=== PATIENT | male | born 1975 | race Caucasian/White ===

== ENCOUNTER 2022-05-28 15:46 | Emergency (ER) | payer MEDICAID, OTHER ==
--- NOTE | 2022-05-28 16:10 | ED General ---
General Chief Complaint: General Problems/Pain Stated Complaint: RT ARM PAIN/LOW BLOOD PRESSURE/SOB Nursing Triage Note: PT HAS MULTIPLE CHRONIC COMPLAINTS OF BACK AND NECK PAIN. HE REPORTS RIGHT ARM SPASMS FOR 3-4 DAYS. Source of Information: Patient Exam Limitations: No Limitations History of Present Illness Date Seen by Provider: May 28, 2022 Time Seen by Provider: 15:48 Initial Comments 47yoM coming in due to right shoulder pain. Has been going on for roughly 3-4 days. Feels like a muscle spasm to him and is moderate in intensity. Nothing seems to make it better or worse. He hasn't tried any medicines for it. He has not seen any doctor for it. He is not from the area, and is just visiting friends. Denies any trauma to the area. Denies any focal weakness or numbness. Otherwise denying any other acute complaints Allergies and Home Medications Allergies Coded Allergies: No Known Drug Allergies (Unverified , 05/28/22) Patient Home Medication List Home Medication List Reviewed: Yes Review of Systems Review of Systems Constitutional: No fever EENTM: No blurred vision Respiratory: no symptoms reported Cardiovascular: no symptoms reported Gastrointestinal: no symptoms reported Genitourinary: no symptoms reported Musculoskeletal: see HPI Skin: no symptoms reported Psychiatric/Neurological: No Symptoms Reported Hematologic/Lymphatic: No Symptoms Reported Immunological/Allergic: no symptoms reported All Other Systems Reviewed Negative Unless Noted: Yes Past Kqjipwf-Caszwn-Exzskm Hx Patient Social History Tobacco Use?: Yes Tobacco type used: Cigarettes Smoking Status: Current Everyday Smoker Use of E-Cig and/or Vaping dev: No Substance use?: No Alcohol Use?: No Pt feels they are or have been: No Past Medical History Surgery/Hospitalization HX: CHRONIC BACK PAIN Surgeries: No Physical Exam Vital Signs Vital Signs - First Documented 05/28/22 15:50 Temp 36.3 Pulse 105 Resp 16 B/P (MAP) 168/111 (130) Pulse Ox 97 O2 Delivery Room Air Capillary Refill : Less Than 3 Seconds Height, Weight, BMI Height: '" Weight: lbs. oz. kg; BMI Method: General Appearance: No Apparent Distress, WD/WN Eyes: Bilateral Eye Normal Inspection HEENT: PERRL/EOMI, Normal ENT Inspection, Pharynx Normal Neck: Full Range of Motion, Normal Inspection, Non Tender, Supple Respiratory: Chest Non Tender, Lungs Clear, Normal Breath Sounds, No Accessory Muscle Use, No Respiratory Distress Cardiovascular: Regular Rate, Rhythm, No Edema, Normal Peripheral Pulses Gastrointestinal: Normal Bowel Sounds, Non Tender, Soft Back: Normal Inspection, No CVA Tenderness, No Vertebral Tenderness Extremity: Normal Capillary Refill, Normal Inspection, Normal Range of Motion, No Calf Tenderness, No Pedal Edema, Other (Tender with palpation along the right deltoid, pain with testing of the rotator cuff, but 5 out of 5 strength with his rotator cuff) Neurologic/Psychiatric: Alert, No Motor/Sensory Deficits, Normal Mood/Affect Skin: Normal Color, Warm/Dry Lymphatic: No Adenopathy Progress/Results/Core Measures Suspected Sepsis SIRS Temperature: Pulse: 105 Respiratory Rate: 16 Blood Pressure 168 /111 Mean: 130 Results/Orders My Orders Orders - PABLO DURAN MD Shoulder 3 View Right (05/28/22 16:01) Vital Signs/I&O 05/28/22 15:50 Temp 36.3 Pulse 105 Resp 16 B/P (MAP) 168/111 (130) Pulse Ox 97 O2 Delivery Room Air Capillary Refill : Less Than 3 Seconds Blood Pressure Mean: 130 Progress Note : Progress Note 47-year-old male with above history coming in due to right shoulder pain. ABCs were intact and vitals were stable on presentation although he was mildly tachycardic. Physical exam with tenderness along his deltoid, no skin changes or cellulitis. His arms appear to be the same size with no swelling. Normal distal pulses and sensation. Normal neuro exam including specific testing of the radial, ulnar, median nerves. Physical testing more consistent with rotator cuff pathology with pain, but no tear based on his strength. X-ray with no fracture or dislocation of the shoulder. I did a hbvvh-ex-rxyg ultrasound showing compressible veins from his elbow up to his axilla with no obvious blood clot. We will give him ibuprofen for pain and have him follow-up with [facility] since he is new to [facility]. Diagnostic Imaging Diagonstic Imaging: Xray (shoulder) Comments NAME: JESICA ROMERO [facility] REC#: [id number] PT STATUS: REG ER : 1975 PHYSICIAN: PABLO DURAN MD ADMIT DATE: 05/28/22/ER FS Draft Date of Exam:05/28/22 SHOULDER 3 VIEW RIGHT INDICATION: R shoulder pain COMPARISON: None. FINDINGS: Three views of the right shoulder were obtained. There is no fracture, dislocation, or other acute bony abnormality identified. The soft tissues appear unremarkable. No radiopaque foreign body is identified. The visualized portions of the right lung are clear. IMPRESSION: No acute fractures or dislocations of the right shoulder. Dictated on workstation # [id number] Dict: 05/28/22 1619 Trans: 05/28/22 1621 [id number] Interpreted by: NELIA RASHID MD Electronically signed by: Departure Impression Primary Impression: Right shoulder pain Qualified Codes: M25.511 - Pain in right shoulder Disposition: 01 HOME, SELF-CARE Condition: Stable Departure-Patient Inst. Decision time for Depature: 16:25 Referrals: [facility] Patient Instructions: Shoulder Pain ED Add. Discharge Instructions: Call and schedule an appointment with [facility], the numbers in this sandeep rwork. They can help manage a lot of your issues and can also get you follow-up with a specialist if you need. Pain medicine as well as a muscle relaxer was sent to [facility] for you to take to help with your symptoms. Scripts Cyclobenzaprine HCl (Cyclobenzaprine HCl) 10 Mg Tablet 10 MG PO Q8H PRN for SPASMS for 5 Days, #15 TAB 0 Refills Prov: PABLO DURAN MD 05/28/22 Ibuprofen (Ibuprofen) 600 Mg Tablet 600 MG PO Q6H PRN for PAIN-MILD for 7 Days, #28 TAB Prov: PABLO DURAN MD 05/28/22 PABLO DURAN MD May 28, 2022 16:10
--- NOTE | 2022-05-28 16:21 | Diagnostic Imaging Report ---
INDICATION: R shoulder pain COMPARISON: None. FINDINGS: Three views of the right shoulder were obtained. There is no fracture, dislocation, or other acute bony abnormality identified. The soft tissues appear unremarkable. No radiopaque foreign body is identified. The visualized portions of the right lung are clear. IMPRESSION: No acute fractures or dislocations of the right shoulder. Dictated by: Dictated on workstation # [id number]
[2022-05-28] MEDS ORDERED: CYCL10TA25 PO (16:26)
[2022-05-28] MEDS ORDERED: IBUP-1773 PO (16:26)
[2022-05-28] MEDS ORDERED: CYCLOBENZAPRINE 10 MG (FLEXERIL) TAB PO STA (16:26)
[2022-05-28 16:29] VITALS: BP 168/111
[2022-05-28] MEDS ORDERED: IBUPROFEN 600 MG (MOTRIN) TAB PO ONE (16:30)
== END 2022-05-28 16:33 | disposition home or self-care (01) ==
LOC: ER FS 15:49
DX: M25.511 Pain in right shoulder (principal); R00.0 Tachycardia, unspecified; F17.210 Nicotine dependence, cigarettes, uncomplicated
CPT/HCPCS: 73030